=== PATIENT | male | born 1980 | race Two or more races ===

== ENCOUNTER 2018-05-08 05:59 | Emergency (ER) | payer MEDICAID, OTHER ==
[~2018-05-08] VITALS: Ht 172.7 cm; Wt 89.8 kg
[2018-05-08 06:28] VITALS: BP 131/96
[2018-05-08] MEDS ORDERED: EPINEPHrine HCL 1 MG/1 ML AMP SC ONE (07:30)
== END 2018-05-08 08:02 | disposition home or self-care (01) ==
LOC: ER 05:59
DX: T78.40XA Allergy, unspecified, initial encounter (principal); L50.0 Allergic urticaria; X58.XXXA Exposure to other specified factors, initial encounter
CPT/HCPCS: 96372; 99283; J0171